=== PATIENT | female | born 1950 | race Caucasian/White ===

== ENCOUNTER → 2021-12-19 | Outpatient (CLI) | payer MEDICARE | LOC: M PLAIMG 10:12 | PROVIDERS: ATTEND Internal Medicine Cardiovascular Disease | DX: R06.02 Shortness of breath (principal) ==

== ENCOUNTER → 2022-01-23 | Outpatient (CLI) | payer MEDICARE | LOC: M SLEEP HO 10:05 | PROVIDERS: ATTEND Internal Medicine Cardiovascular Disease | DX: G47.33 Obstructive sleep apnea (adult) (pediatric) (principal) ==

== ENCOUNTER → 2022-11-20 | Outpatient (REF) | payer MEDICARE | LOC: M SFHCDERM 17:47 | PROVIDERS: ATTEND Nurse Practitioner Family | DX: C44.311 Basal cell carcinoma of skin of nose (principal) ==

== ENCOUNTER → 2023-08-31 | Outpatient (REF) | payer MEDICARE | LOC: M SFHCDERM 17:16 | PROVIDERS: ATTEND Dermatology | DX: D22.39 Melanocytic nevi of other parts of face (principal) ==

== ENCOUNTER → 2024-02-19 | Outpatient (CLI) | payer MEDICARE | LOC: M PLAIMG 08:51 | PROVIDERS: ATTEND Internal Medicine Cardiovascular Disease | DX: I50.32 Chronic diastolic (congestive) heart failure (principal); I35.8 Other nonrheumatic aortic valve disorders; I27.23 Pulmonary hypertension due to lung diseases and hypoxia ==

== ENCOUNTER 2025-08-31 09:57 | Day surgery (SDC) | payer MEDICARE ==
[~2025-08-31] VITALS: Ht 152.4 cm; Wt 132.4 kg
[~2025-08-31 09:57] MED LIST: APAP500T10 PO; ASPI81TA26 PO; ATOR40TA75 PO; BIOT1CAP2 PO; CARV6.25 PO; CHLO125TA PO; CITRTAB18 PO; CVS500CA5 PO; CYAN500T14 PO; GABA-1172 PO; GINK1TAB3 PO; LISI40TA10 PO; LR 1,000 ML IV SCH; OCUV1CAP4 PO; OSTETAB2 PO; PANT40TA29 PO; PRAM1TAB7 PO; PROBCAP14 PO; THERTAB52 PO; TIZA2CAP3 PO; TRAM50TA2 PO; VITA-243 PO; VITA100093 PO; [UNRECOGNIZED DRUG - REMARK] PO
[2025-08-31] MEDS ORDERED: MIDAZOLAM INJ 2 MG/2 ML VIAL As Ordered ONE (12:48)
[2025-08-31] MEDS: PHENYLEPHRINE 2.5% OPHTH SOL 2ML OS SCH (13:18)
[2025-08-31] MEDS: FLURBIPROFEN 0.03% OPHTH SOLN 2.5 ML OS SCH (13:18)
[2025-08-31] MEDS: CYCLOPENTOLATE 1% OPHTH SOLN 2 ML BTL OS SCH (13:18)
[2025-08-31] MEDS: TETRACAINE 0.5% OPHTH SOLN 4ML OS SCH (13:18)
[2025-08-31] MEDS: LIDOCAINE 1% SDV 5 ML VIAL As Ordered ONE (14:07)
[2025-08-31] MEDS: CEFUROXIME 1 MG/0.1 ML INTRACAMERAL INJ As Ordered ONE (14:14)
[2025-08-31 14:25] VITALS: BP 123/59; TEMP 97; O2SAT 98
== END 2025-08-31 14:42 | disposition home or self-care (01) ==
LOC: M SDC 09:57
PROVIDERS: ATTEND Ophthalmology
DX: H25.12 Age-related nuclear cataract, left eye (principal); I10 Essential (primary) hypertension; E78.2 Mixed hyperlipidemia; G47.30 Sleep apnea, unspecified; Z79.82 Long term (current) use of aspirin; Z79.899 Other long term (current) drug therapy; Z85.828 Personal history of other malignant neoplasm of skin; Z88.8 Allergy status to other drugs, medicaments and biological substances; Z91.040 Latex allergy status; Z98.84 Bariatric surgery status; Z90.710 Acquired absence of both cervix and uterus; K21.9 Gastro-esophageal reflux disease without esophagitis; G25.81 Restless legs syndrome; G62.9 Polyneuropathy, unspecified
CPT/HCPCS: 66984; J0697; J2250; J3010; V2632